=== PATIENT | female | born 1975 | race Caucasian/White ===

== ENCOUNTER 2023-09-17 14:34 | Outpatient (CLI) | payer OTHER | END 2023-09-17 14:35 | disposition EMS.NT | LOC: EMS 14:34 | DX: R51.9 Headache, unspecified (principal); V49.40XA Driver injured in collision with unspecified motor vehicles in traffic accident, initial encounter; Y92.413 State road as the place of occurrence of the external cause ==

== ENCOUNTER 2023-09-17 16:54 | Emergency (ER) | payer OTHER ==
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
[2023-09-17 18:26] VITALS: BP 138/76; O2SAT 100
== END 2023-09-17 18:29 | disposition home or self-care (01) ==
LOC: ED 16:54
DX: S16.1XXA Strain of muscle, fascia and tendon at neck level, initial encounter (principal); V89.2XXA Person injured in unspecified motor-vehicle accident, traffic, initial encounter; Y93.89 Activity, other specified
CPT/HCPCS: 99282; 99283